=== PATIENT | female | born 1985 | race American Indian/Alaskan Native ===

== ENCOUNTER 2017-06-18 11:04 | Inpatient (IN) | payer OTHER, MEDICAID ==
[2017-06-18] MEDS ORDERED: LACTATED RINGERS 1,000 ML IV SCH ×2 (12:00→13:00)
[2017-06-18] MEDS ORDERED: BRETHINE IVP PRN (12:10)
[2017-06-18] MEDS ORDERED: ePHEDrine SULFATE IV PRN ×2 (12:10→14:29)
[2017-06-18] MEDS ORDERED: MINERAL OIL PO PRN (12:10)
[2017-06-18] MEDS ORDERED: SUBLIMAZE IV PRN (12:10)
--- NOTE | 2017-06-18 12:16 | History and Physical Report ---
History of Present Illness Date of examination: 06/18/17 Date of admission: 06/18/2017 Chief complaint: My water broke History of present illness: 31 yo with care at [facility] since 6 weeks gestation. Uneventful course. GBS negative. 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 Family/Genetic History: diabetes, hypertension Social history: no significant social history - Obstetrical History Expected Date of Delivery: 06/24/17 Actual Gestation: 39 Week(s) 2 Day(s) : 2 Para: 1 Number of Living Children: 1 Medications and Allergies Allergies Allergy/AdvReac Type Severity Reaction Status Date / Time No Known Allergies Allergy Verified 03/05/15 11:17 Home Medications Medication Instructions Recorded Confirmed Last Taken Type Ondansetron [Zofran Odt] 4 mg PO Q6H #14 tab.rapdis 10/29/14 06/18/17 Unknown Rx Pnv95/Ferrous Fumarate/FA 1 each PO QDAY #30 tablet 10/29/14 06/18/17 Unknown Rx [ Vitamins] Active Meds: Active Medications Ephedrine Sulfate (Ephedrine Sulfate) 10 mg IV Q2M PRN PRN Reason: Hypotension Stop: 06/18/17 12:15 Fentanyl (Sublimaze) 100 mcg IV Q2H PRN PRN Reason: Labor Pain Lactated Ringer's (Lactated Ringers) 1,000 mls @ 125 mls/hr IV DIRECT ALY Lactated Ringer's (Lactated Ringers) 1,000 mls @ 125 mls/hr IV DIRECT ALY Oxytocin/Sodium Chloride (Pitocin/Ns 20 Unit/1000ml Drip) 20 units in 1,000 mls @ 125 mls/hr IV DIRECT ALY Oxytocin/Sodium Chloride (Pitocin/Ns 30 Unit/500ml) 30 units in 500 mls @ 4 mls /hr IV TITR ALY PRN Reason: Protocol Lidocaine (Xylocaine 2%) 20 ml INFILTRATI ONCE ONE Stop: 06/18/17 12:11 Mineral Oil (Mineral Oil) 30 ml PO QHS PRN PRN Reason: Constipation Terbutaline Sulfate (Brethine) 0.25 mg SUB-Q ONCE PRN PRN Reason: Hyperstimulation/Hypertonicity Stop: 06/18/17 12:11 Terbutaline Sulfate (Brethine) 0.25 mg IVP ONCE PRN PRN Reason: Hyperstimulation/Hypertonicity Stop: 06/18/17 12:11 Review of Systems All systems: negative - Vital Signs Vital signs: Vital Signs Pulse BP 73 114/58 06/18/17 11:41 06/18/17 11:41 Temp Pulse Resp BP Pulse Ox 73 114/58 06/18/17 11:41 06/18/17 11:41 - Physical Exam Breasts: Positive: deferred Cardiovascular: Regular rate Lungs: Positive: Clear to auscultation Abdomen: Positive: soft Vagina: Positive: normal moisture Uterus: Positive: enlarged Anus/Rectum: Positive: normal perianal skin Deep Tendon Reflex Grade: Normal +2 - Obstetrical FHR: category 1 Uterine Contraction Monitor Mode: Palpation Cervical Dilatation: 3 Cervical Effacement Percentage: 70 station: -1 Uterine Contraction Pattern: Regular Uterine Contraction Intensity: Moderate Results Result Diagrams: 06/19/17 04:04 All other labs normal. Assessment and Plan A: Active labor with SROM, meconium P: EXpect
[2017-06-18] MEDS ORDERED: XYLOCAINE 2% INFILTRATI ONE (12:20)
[2017-06-18] MEDS ORDERED: BRETHINE SUB-Q PRN (12:20)
[2017-06-18 12:47] LABS: Basophils % (Auto) 0.3 % (0.0-1.8); Eosinophils % (Auto) 0.4 % (0.0-4.3); Hematocrit 38.5 % (30.3-42.9); Hemoglobin 12.8 gm/dl (10.1-14.3); Mean Corpuscular HGB Conc 33 % (30-34); Mean Corpuscular Hemoglobin 27 pg (28-32); Mean Corpuscular Volume 81 fl (79-97); Platelet Count 188 K/mm3 (140-440); Red Blood Count 4.74 M/mm3 (3.65-5.03); Red Cell Distribution Width 14.9 % (13.2-15.2); White Blood Count 7.7 K/mm3 (4.5-11.0)
[2017-06-18] MEDS ORDERED: PITOCin/NS 30 UNIT/500ML 30 UNITS/500 ML BAG IV SCH (13:00)
[2017-06-18] MEDS ORDERED: ePHEDrine SULFATE ONE (13:43)
[2017-06-18] MEDS ORDERED: NARCAN 2 MG/2 ML IV PRN (14:29)
--- NOTE | 2017-06-18 14:29 | Anesthesia Consultation ---
Anesthesia Consult and Med Hx Date of service: 06/18/17 - Airway Anesthetic Teeth Evaluation: Good ROM Head & Neck: Adequate Mental/Hyoid Distance: Adequate Intubation Access Assessment: Probably Good - Pre-Operative Health Status ASA Pre-Surgery Classification: ASA3, Emergency Proposed Anesthetic Plan: Epidural, Spinal - Pulmonary Hx Asthma: No COPD: No Hx Pneumonia: No - Cardiovascular System Hx Hypertension: No - Central Nervous System Hx Seizures: No Hx Psychiatric Problems: No - Endocrine Hx Renal Disease: No Hx End Stage Renal Disease: No Hx Hypothyroidism: No Hx Hyperthyroidism: No - Hematic Hx Anemia: No Hx Sickle Cell Disease: No - Other Systems Hx Alcohol Use: No
[2017-06-18] MEDS: PITOCin/NS 20 UNIT/1000ML DRIP 20 UNITS/1,000 ML BAG IV SCH ×2 (14:30→16:24)
--- NOTE | 2017-06-18 14:56 | Procedure Note ---
OB Delivery Note - Delivery Date of Delivery: 06/18/17 (1428) Surgeon: JOEL PALENCIA Estimated blood loss: 200cc - Vaginal Delivery presentation: vertex Delivery position: OA Intrapartum events: meconium, mult.variable deceleratio Delivery induction: none Delivery monitor: external FHT, external uterine Route of delivery: Delivery placenta: spontaneous Delivery cord: nuchal cord, 3 umbilical vessels Delivery laceration: none Anesthesia: epidural Delivery comments: Baby alex Gurrola was delivered on 06/18/2017 @ 1428 over intact perineum. Tight nuchal x 1 was clamped and cut on the delivery of head and then body was delivered. Baby immediately passed to NICU team for suctioning and assessment. Fundus firm, midline and 2 cm below umbilicus. Baby was 5lb 15oz with apgars of 8/9. EBL was 100mL. Mom and baby doing well. - Infant A at 1 minute: 8 at 5 minutes: 9 Gender: Male
[2017-06-18] MEDS ORDERED: MILK OF MAGNESIA PO PRN (14:57)
[2017-06-18] MEDS ORDERED: TUCKS PAD TP PRN (14:57)
[2017-06-18] MEDS ORDERED: DULCOLAX PR PRN (14:57)
[2017-06-18] MEDS ORDERED: TYLENOL PO PRN (14:57)
[2017-06-18] MEDS ORDERED: ZOFRAN IV PRN (14:57)
[2017-06-18] MEDS ORDERED: LANSINOH TP PRN (14:57)
[2017-06-18] MEDS ORDERED: fentaNYL-BUPIV 2 MCG/ML-0.125% 200 MCG/100 ML BAG EPIDURAL SCH (15:00)
[2017-06-18] MEDS ORDERED: SODIUM CHLORIDE FLUSH SYRINGE 10 ML IV NR (15:00)
[2017-06-18] MEDS: MOTRIN PO SCH ×2 (18:03→23:59)
[2017-06-18] MEDS: NORCO 5/325 PO PRN (19:22)
[2017-06-19 04:43] LABS: Hematocrit 34.3 % (30.3-42.9); Hemoglobin 11.1 gm/dl (10.1-14.3)
[2017-06-19] MEDS: MOTRIN PO SCH ×4 (06:14→22:05)
--- NOTE | 2017-06-19 08:59 | Progress Note ---
Assessment and Plan O: C/o right leg tingling at times, thinks its from her epidural A: PPD #1 stable P: Plan discharge in am Subjective - Subjective Date of service: 06/19/17 Principal diagnosis: Interval history: 31 yo with care at [facility] since 6 weeks gestation. Uneventful course. GBS negative. Patient reports: appetite normal, pain well controlled [place]: doing well Objective - Vital Signs Latest vital signs: Vital Signs Temp Pulse Pulse Resp BP BP Pulse Ox 06/19/17 00:18 98.1 F 59 L 18 100/61 06/18/17 20:00 97.8 F 59 L 16 108/51 06/18/17 16:02 63 112/63 06/18/17 16:00 58 L 119/57 06/18/17 15:58 59 L 111/65 06/18/17 15:56 63 110/59 06/18/17 15:54 64 109/54 06/18/17 15:52 64 106/68 06/18/17 15:50 62 117/69 06/18/17 15:48 61 119/69 06/18/17 15:46 59 L 117/68 06/18/17 15:44 56 L 115/68 06/18/17 15:42 65 110/64 06/18/17 15:40 62 111/56 06/18/17 15:38 109/65 06/18/17 15:36 55 L 111/64 06/18/17 15:34 57 L 106/58 06/18/17 15:32 59 L 110/57 06/18/17 15:30 67 126/69 06/18/17 15:28 62 119/64 06/18/17 15:26 63 125/61 06/18/17 15:24 61 128/63 06/18/17 15:22 59 L 128/62 06/18/17 15:20 67 129/57 06/18/17 15:18 69 130/70 06/18/17 15:16 69 123/62 06/18/17 15:14 63 124/59 06/18/17 15:12 83 120/61 06/18/17 15:10 77 115/58 06/18/17 15:08 58 L 118/68 06/18/17 15:06 66 120/59 06/18/17 15:04 63 118/57 06/18/17 15:02 63 115/57 06/18/17 15:00 82 117/62 06/18/17 14:58 80 118/70 06/18/17 14:56 86 122/71 06/18/17 14:54 93 H 122/76 06/18/17 14:52 89 113/56 06/18/17 14:50 96 H 124/54 06/18/17 14:48 65 116/64 06/18/17 14:46 75 117/63 06/18/17 14:44 77 111/59 06/18/17 14:42 65 106/57 06/18/17 14:40 179 H 119/59 06/18/17 14:38 89 118/63 06/18/17 14:36 82 116/57 06/18/17 14:34 75 121/58 06/18/17 14:32 90 127/68 06/18/17 14:28 67 113/52 100 06/18/17 14:26 68 131/74 06/18/17 14:24 99 H 124/58 06/18/17 14:22 95 H 104/57 90 06/18/17 14:20 66 102/52 06/18/17 14:19 75 100 06/18/17 14:18 71 109/58 06/18/17 14:16 68 125/77 06/18/17 14:14 59 L 132/60 100 06/18/17 14:08 75 117/66 97 06/18/17 14:06 70 119/61 06/18/17 14:04 75 18 124/69 138/81 06/18/17 14:03 64 97 06/18/17 14:02 77 138/81 06/18/17 13:59 73 168/119 06/18/17 13:58 68 99 06/18/17 13:54 83 118/59 06/18/17 13:53 93 H 100 06/18/17 13:52 85 134/61 06/18/17 13:50 82 126/60 06/18/17 13:48 83 126/60 98 06/18/17 13:46 75 138/74 06/18/17 13:43 75 97 06/18/17 13:32 62 140/80 06/18/17 13:17 70 112/71 06/18/17 13:01 65 122/75 06/18/17 12:46 64 116/75 06/18/17 12:32 63 129/83 06/18/17 12:16 65 129/70 06/18/17 11:41 73 114/58 Intake and Output 06/18/17 06/19/17 06/19/17 22:59 06:59 14:59 Intake Total 600 Output Total 1200 900 Balance -1200 -300 Intake: Intake, Free Water 600 Output: Urine 1200 900 Void 1200 900 Other: Total, Output Amount 1200 900 # Voids Void 3 - Exam Breasts: Present: deferred Cardiovascular: Present: Regular rate Lungs: Present: Clear to auscultation Vulva: both: normal Uterus: Present: fundal height below umbilicus Deep Tendon Reflex Grade: Normal +2 - Labs Labs: Abnormal lab results 06/18/17 Range/Units 12:20 MCH 27 L (28-32) pg Person % (Auto) 9.1 H (0.0-7.3) % Seg Neutrophils % 72.0 H (40.0-70.0) %
--- NOTE | 2017-06-19 09:01 | Discharge Summary ---
Providers - Providers Date of Admission: 06/18/17 12:17 Date of discharge: 06/20/17 Attending physician: JORGE GARCIA MD Primary care physician: JORGE GARCIA MD Hospitalization Reason for admission: active labor Delivery: Episiotomy: none Laceration: none Other procedures: none Discharge diagnosis: IUP at term delivered [place] baby: male Condition at discharge: Good Disposition: DC-01 TO HOME OR SELFCARE Plan - Provider Discharge Summary Activity: routine, no sex for 6 weeks, no strenuous exercise Diet: routine Instructions: routine Additional instructions: [] Smoking cessation referral if applicable(refer to patient education folder for contact #) [] Refer to [facility] Booklet Call your doctor immediately for: * Fever > 100.5 * Heavy vaginal bleeding ( >1 pad per hour) * Severe persistent headache * Shortness of breath * Reddened, hot, painful area to leg or breast * Drainage or odor from incision. * Keep incision clean and dry at all times and follow doctor's instructions regarding bathing/showering - Follow up plan Follow up: [facility] [Provider Group] - 7 Days
[2017-06-19] MEDS: NORCO 5/325 PO PRN (10:31)
[2017-06-20] MEDS: MOTRIN PO SCH ×2 (04:27→12:51)
[2017-06-20 15:08] VITALS: BP 116/56
--- NOTE | 2017-06-20 18:23 | Progress Note ---
Subjective Date of service: 06/20/17 Principal diagnosis: Interval history: A anesthesia consult was requested but patient had been discharged home upon my arrival on the floor. A message was left on patients phone to call anesthesia at [phone]. Objective - Constitutional Vitals: Vital Signs - 12hr 06/20/17 06/20/17 08:07 12:26 Temperature 98.3 F 99.0 F Pulse Rate 72 68 Respiratory 18 18 Rate Blood Pressure 100/50 116/56 - Labs CBC & Chem 7: 06/19/17 04:04
== END 2017-06-20 13:15 | disposition home or self-care (01) | DRG 775 ==
LOC: TRG 11:04 → LD 12:17 → OB 17:20
PROVIDERS: ADMIT Obstetrics & Gynecology; ATTEND Obstetrics & Gynecology
PROC: 10E0XZZ Delivery of Products of Conception, External Approach (ICD-10-PCS; principal; 2017-06-18)
PROC: 3E0S3CZ (ICD-10-PCS; 2017-06-18)
PROC: 00HU33Z Insertion of Infusion Device into Spinal Canal, Percutaneous Approach (ICD-10-PCS; 2017-06-18)
DX: O42.02 Full-term premature rupture of membranes, onset of labor within 24 hours of rupture (principal); O77.0 Labor and delivery complicated by meconium in amniotic fluid; O76 Abnormality in fetal heart rate and rhythm complicating labor and delivery; O69.1XX0 Labor and delivery complicated by cord around neck, with compression, not applicable or unspecified; Z3A.00 Weeks of gestation of pregnancy not specified; Z37.0 Single live birth
CPT/HCPCS: 36415; 85014; 85018; 85025; 85027; 86850; 86900; 86901; 99211; A6250; G0463; J2590; J3010; J7120

== ENCOUNTER 2019-04-23 09:56 | Emergency (ER) | payer MEDICAID, OTHER ==
[2019-04-23 10:06] VITALS: BP 135/71
[2019-04-23 10:39] LABS: Basophils % (Auto) 0.6 % (0.0-1.8); Eosinophils % (Auto) 0.9 % (0.0-4.3); Hematocrit 36.5 % (30.3-42.9); Hemoglobin 12.1 gm/dl (10.1-14.3); Lymphocytes # (Auto) 1.3 K/mm3 (1.2-5.4); Lymphocytes % (Auto) 33.6 % (13.4-35.0); Mean Corpuscular HGB Conc 33 % (30-34); Mean Corpuscular Volume 81 fl (79-97); Monocytes # (Auto) 0.2 K/mm3 (0.0-0.8); Monocytes % (Auto) 5.6 % (0.0-7.3); Platelet Count 214 K/mm3 (140-440); Red Blood Count 4.51 M/mm3 (3.65-5.03); Red Cell Distribution Width 14.5 % (13.2-15.2)
--- NOTE | 2019-04-23 11:10 | Emergency Department Report ---
ED Female HPI - General Chief complaint: Vaginal Bleeding Stated complaint: 6WKS /SIDE PAIN/BLEEDING Time Seen by Provider: 04/23/19 11:06 Source: patient, family Mode of arrival: Ambulatory Limitations: No Limitations - History of Present Illness Initial comments: This is a 33-year-old female here report that she has left lower quadrant abdo luis alfredo pain with vaginal bleeding since last week. Patient reports that she is 6 weeks she has an appointment with left-sided [facility] on Thursday. Pain is 4/10 and crampy on and off no alleviating or exacerbating factors. Denies any concern for STDs and denies any vaginal discharge. Denies any urinary burning, frequency or urgency. No medication taken prior to coming to the emergency room MD Complaint: vaginal discharge, pelvic pain Onset/Timin -: week(s) Location: suprapubic Radiation: non-radiating Severity: mild Severity scale (0 -10): 4 Quality: cramping Consistency: intermittent Improves with: none Worsens with: none Are you Now?: Yes Associated Symptoms: vaginal bleeding, abdominal pain. denies: vaginal discharge, nausea/vomiting, fever/chills, headaches, loss of appetite, dysuria, hematuria, rash, seizure, shortness of breath, syncope, weakness - Related Data Sexually active: Yes Previous Rx's Medication Instructions Recorded Last Taken Type Ondansetron [Zofran Odt] 4 mg PO Q6H #14 tab.rapdis 10/29/14 Unknown Rx Pnv95/Ferrous Fumarate/FA 1 each PO QDAY #30 tablet 10/29/14 Unknown Rx [ Vitamins] Allergies Allergy/AdvReac Type Severity Reaction Status Date / Time No Known Allergies Allergy Verified 04/23/19 09:58 ED Review of Systems ROS: Stated complaint: 6WKS /SIDE PAIN/BLEEDING Other details as noted in HPI Constitutional: denies: chills, fever ENT: denies: throat pain, congestion Respiratory: denies: cough, shortness of breath, wheezing Cardiovascular: denies: chest pain, palpitations, edema, syncope Gastrointestinal: abdominal pain. denies: nausea, vomiting, constipation, hematemesis Genitourinary: denies: dysuria, frequency, hematuria, discharge, dyspareunia Musculoskeletal: denies: back pain, joint swelling, arthralgia, myalgia Skin: denies: rash Neurological: denies: headache ED Past Medical Hx - Past Medical History Previous Medical History?: No Hx Hypertension: No Hx Congestive Heart Failure: No Hx Diabetes: No Hx Deep Vein Thrombosis: No Hx Renal Disease: No Hx Sickle Cell Disease: No Hx Seizures: No Hx Asthma: No Hx COPD: No Hx HIV: No - Surgical History Past Surgical History?: No - Family History Family history: hypertension - Social History Smoking Status: Never Smoker Substance Use Type: None - Medications Home Medications: Home Medications Medication Instructions Recorded Confirmed Last Taken Type Ondansetron [Zofran Odt] 4 mg PO Q6H #14 tab.rapdis 10/29/14 06/18/17 Unknown Rx Pnv95/Ferrous Fumarate/FA 1 each PO QDAY #30 tablet 10/29/14 06/18/17 Unknown Rx [ Vitamins] ED Physical Exam - General Limitations: No Limitations General appearance: alert, in no apparent distress - Head Head exam: Present: atraumatic - Eye Eye exam: Present: normal appearance, PERRL, EOMI Pupils: Present: normal accommodation - ENT ENT exam: Present: normal exam, normal orophraynx, mucous membranes moist - Neck Neck exam: Present: normal inspection, full ROM. Absent: tenderness, lymphadenopathy - Respiratory Respiratory exam: Present: normal lung sounds bilaterally. Absent: respiratory distress, chest wall tenderness - Cardiovascular Cardiovascular Exam: Present: regular rate, normal rhythm, normal heart sounds - GI/Abdominal GI/Abdominal exam: Present: soft, normal bowel sounds. Absent: distended, tenderness, guarding, rigid, organomegaly, mass, bruit - Extremities Exam Extremities exam: Present: normal inspection, full ROM, normal capillary refill, other (No cce. + 2 pulses in all extremities, no neurovascular compromise). Ab sent: tenderness, pedal edema, joint swelling, calf tenderness - Back Exam Back exam: Present: normal inspection, full ROM, other (your hot mass girl ambulates without any difficulties). Absent: muscle spasm - Neurological Exam Neurological exam: Present: alert, oriented X3, normal gait - Psychiatric Psychiatric exam: Present: normal affect, normal mood - Skin Skin exam: Present: warm, dry, intact, normal color. Absent: rash ED Course Vital Signs 04/23/19 10:03 Temperature 98.1 F Pulse Rate 100 H Respiratory 18 Rate Blood Pressure 135/71 O2 Sat by Pulse 100 Oximetry - Reevaluation(s) Reevaluation #1: 04/23/19 17:01 She had uneventful ED stay ED Medical Decision Making - Lab Data Result diagrams: 04/23/19 10:21 Lab Results 04/23/19 04/23/19 04/23/19 Range/Units 10:21 10:21 10:21 WBC 3.9 L (4.5-11.0) K/mm3 RBC 4.51 (3.65-5.03) M/mm3 Hgb 12.1 (10.1-14.3) gm/dl Hct 36.5 (30.3-42.9) % MCV 81 (79-97) fl MCH 27 L (28-32) pg MCHC 33 (30-34) % RDW 14.5 (13.2-15.2) % Plt Count 214 (140-440) K/mm3 Lymph % (Auto) 33.6 (13.4-35.0) % Martin % (Auto) 5.6 (0.0-7.3) % Eos % (Auto) 0.9 (0.0-4.3) % Baso % (Auto) 0.6 (0.0-1.8) % Lymph # 1.3 (1.2-5.4) K/mm3 Martin # 0.2 (0.0-0.8) K/mm3 Eos # 0.0 (0.0-0.4) K/mm3 Baso # 0.0 (0.0-0.1) K/mm3 Seg Neutrophils % 59.3 (40.0-70.0) % Seg Neutrophils # 2.3 (1.8-7.7) K/mm3 HCG, Quant 52512 H (0-4) mIU/mL Blood Type O POSITIVE - Radiology Data Radiology results: report reviewed And abdominal and transvaginal OB ultrasound dictated by radiologist and report reviewed by myself. See details below Findings [facility] [address] [place] [address] Ultrasound Report Signed Patient: BEA FRANCO R#: [id number] : 1985 Acct:[id number] Age/Sex: 33 / F ADM Date: 04/23/19 Loc: ED Attending Dr: Ordering Physician: ELSA COOPER Date of Service: 04/23/19 Procedure(s): US OB transvaginal Accession Number(s): [id number] cc: ELSA COOPER PROCEDURE: US OB TRANSVAGINAL TECHNIQUE: Early obstetrical ultrasound performed. Transabdominal and transvaginal scanning. HISTORY: vaginal bleed COMPARISON: None FINDINGS: There is an intrauterine gestational sac seen. It contains a yolk sac and pole. [place]-rump length measurement corresponds to gestational age of 7 weeks 0 days and JASKARAN of 12/10/2019. cardiac activity seen measured at 130 bpm. There is likely a small subchorionic hemorrhage. There is a posterior uterine fibroid measuring about 3 cm. Right ovary measures 3.2 x 1.8 x 2.8 cm. Left ovary measures 2.8 x 1.2 x 2.8 cm. There is no free fluid. IMPRESSION: There is a single live intrauterine of approximately 7 weeks 0 days gestational age. This corresponds to JASKARAN of 12/10/2019. Small subchorionic hemorrhage. Small posterior uterine fibroid. This document is electronically signed by Kat Middleton MD., April 23 2019 04:42:08 PM ET Transcribed By: [facility] Dictated By: KAT MIDDLETON MD Electronically Authenticated By: KAT MIDDLETON MD Signed Date/Time: 04/23/19 1544 DD/ 1358 TD/TT: 04/23/19 14 - Medical Decision Making This is a 33-year-old female here report that she is 6 weeks and she has an appointment with her cycle [facility] Thursday and she says she has been having abdominal cramping and spotting on and off since last week. She said spotting is not every day but when she wipes sometime she sees pinkish color blood. Patient had transvaginal and trans-abdominal OB ultrasound that was dictated by radiologist and report reviewed by myself. There is a single live intrauterine of approximately 7 weeks 0 days gestational age. This corresponds to JASKARAN of 12/10/2019. Small subchorionic hemorrhage. Small posterior uterine fibroid. This document is electronically signed by Kat Middleton MD., April 23 2019 04:42:08 PM ET CBC is stable Quantitative hCG correlate with I discussed the patient her diagnosis, treatment plan and need to follow-up her keep her appointment with her [facility]ION AGENT. I discussed the diagnosis of threatened miscarriage and that she needs to rest without any sexual activity or inserting any objects including her fingers in her vaginal area until this is cleared by her [facility]ION [facility] doctor. 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 She voiced understanding and and patient is stable in no acute distress she does not have any vaginal bleed or abdominal pain at present she also is aware that she has a fibroid which is not new. I discussed with her the small subchorionic hemorrhage and what it means that she says she has had that with her other . Patient discharged home in stable condition to follow up with her [facility]ION AGENT on Thursday as already scheduled. - Differential Diagnosis ectopic , threatened miscarriage, Critical care attestation.: If time is entered above; I have spent that time in minutes in the direct care of this critically ill patient, excluding procedure time. ED Disposition Clinical Impression: Threatened miscarriage in early , Abdominal pain during intrauterine Subchorionic bleed Qualifiers: Fetus number: single or unspecified fetus Trimester: first trimester Qualified Code(s): O41.8X10 - Other specified disorders of amniotic fluid and membranes, first trimester, not applicable or unspecified; O46.8X1 - Other antepartum hemo rrhage, first trimester Uterine fibroid Qualifiers: Uterine leiomyoma location: unspecified location Qualified Code(s): D25.9 - Leiomyoma of uterus, unspecified Disposition: DC-01 TO HOME OR SELFCARE Is pt being admited?: No Does the pt Need Aspirin: No Condition: Stable Instructions: Threatened Miscarriage (ED), Uterine Fibroids (ED), Abdominal Pain in (ED) Additional Instructions: Please follow up with the COUNTY EX[facility]ION AGENT on Thursday as scheduled If you develop worsening abdominal pain and increased vaginal bleeding please return to emergency room Please avoid sexual activity or inserting any objects including your fingers in your vaginal area until directed by your COUNTY EXTENSION AGENT You can return to work when instructed by COUNTY EXTENSION AGENT Referrals: [facility] [Provider Group] - 04/25/19 Forms: Work/School Release Form(ED)
--- NOTE | 2019-04-23 15:43 | Ultrasound Report ---
PROCEDURE: US OB <= 14 WEEKS FETUS TECHNIQUE: Early obstetrical ultrasound performed. Transabdominal and transvaginal scanning. HISTORY: vaginal bleed COMPARISON: None FINDINGS: There is an intrauterine gestational sac seen. It contains a yolk sac and pole. [place]-rump length measurement corresponds to gestational age of 7 weeks 0 days and JASKARAN of 12/10/2019. cardiac activity seen measured at 130 bpm. There is likely a small subchorionic hemorrhage. There is a posterior uterine fibroid measuring about 3 cm. Right ovary measures 3.2 x 1.8 x 2.8 cm. Left ovary measures 2.8 x 1.2 x 2.8 cm. There is no free fluid. IMPRESSION: There is a single live intrauterine of approximately 7 weeks 0 days gestational age. This c orresponds to JASKARAN of 12/10/2019. Small subchorionic hemorrhage. Small posterior uterine fibroid. This document is electronically signed by Kat Jones MD., April 23 2019 04:41:26 PM ET
--- NOTE | 2019-04-23 15:44 | Ultrasound Report ---
PROCEDURE: US OB TRANSVAGINAL TECHNIQUE: Early obstetrical ultrasound performed. Transabdominal and transvaginal scanning. HISTORY: vaginal bleed COMPARISON: None FINDINGS: There is an intrauterine gestational sac seen. It contains a yolk sac and pole. [place]-rump length measurement corresponds to gestational age of 7 weeks 0 days and JASKARAN of 12/10/2019. cardiac activity seen measured at 130 bpm. There is likely a small subchorionic hemorrhage. There is a posterior uterine fibroid measuring about 3 cm. Right ovary measures 3.2 x 1.8 x 2.8 cm. Left ovary measures 2.8 x 1.2 x 2.8 cm. There is no free fluid. IMPRESSION: There is a single live intrauterine of approximately 7 weeks 0 days gestational age. This c orresponds to JASKARAN of 12/10/2019. Small subchorionic hemorrhage. Small posterior uterine fibroid. This document is electronically signed by Kat Jones MD., April 23 2019 04:42:08 PM ET
== END 2019-04-23 17:40 | disposition home or self-care (01) ==
LOC: ED 09:56
DX: O20.0 Threatened abortion (principal); O26.891 Other specified pregnancy related conditions, first trimester; D25.9 Leiomyoma of uterus, unspecified; Z3A.01 Less than 8 weeks gestation of pregnancy
CPT/HCPCS: 36415; 76801; 76817; 84702; 85025; 86900; 86901; 99284